=== PATIENT | female | born 1960 | race Caucasian/White ===

== ENCOUNTER 2019-06-26 21:54 | Emergency (ER) | payer OTHER ==
[~2019-06-26] VITALS: Ht 162.6 cm; Wt 94.3 kg
[~2019-06-26 21:54] MED LIST: CIPROFLOXACIN500 M1 PO
[2019-06-26] MEDS ORDERED: MEDROLDOSEPACK PO (23:09)
[2019-06-26] MEDS ORDERED: NAPROSYN500 MG PO (23:09)
[2019-06-26 23:22] VITALS: BP 122/92
== END 2019-06-26 23:23 | disposition home or self-care (01) ==
LOC: ER 21:54
DX: M19.072 Primary osteoarthritis, left ankle and foot (principal); M25.572 Pain in left ankle and joints of left foot; Z88.1 Allergy status to other antibiotic agents; Z87.891 Personal history of nicotine dependence